=== PATIENT | female | born 1985 | race Two or more races ===

== ENCOUNTER 2022-10-23 09:29 | Inpatient (IN) | payer OTHER ==
[2022-10-23 12:44] LABS: BASO % 0.3 % (0-2.0); EOS % 0.8 % (0-4.5); HEMOGLOBIN 11.6 GM/dL (10.7-15.3); LYMPH % 15.7 % (8-40); MCH 29.7 pg (25.7-33.7); MCHC 34.1 g/dl (32.0-36.0); MEAN CELL VOLUME 87.1 fl (80-96); MEAN PLT VOLUME 8.2 fl (7.5-11.1); MONO % 10.6 % (3.8-10.2); NEUT % 72.6 % (42.8-82.8); PLATELET COUNT 179 10^3/uL (134-434); RBC 3.91 M/mm3 (3.60-5.2); RDW 14.1 % (11.6-15.6); WHITE BLOOD COUNT 7.7 K/mm3 (4.0-10.0)
[2022-10-23 12:50] LABS: INR 0.94 (0.83-1.09); PROTHROMBIN TIME (PATIENT) 10.9 SEC (9.7-13.0)
[2022-10-23 12:52] LABS: ACTIVATED PTT 24.9 SECONDS (25.2-36.5)
[2022-10-23 13:06] LABS: POTASSIUM 4.8 mmol/L (3.5-5.1)
[2022-10-23 13:09] LABS: CALCIUM 8.5 mg/dL (8.5-10.1)
[2022-10-23 13:12] LABS: CREATININE 0.5 mg/dL (0.55-1.3)
[2022-10-23] MEDS: ELECTROLYTE-148 SOLN 1,000 ML IV SCH (19:00)
[2022-10-23] MEDS ORDERED: OXYTOCIN 30 UNITS in 0.9% NS 30 UNIT/500 ML INFUS.BAG IVPB SCH (21:45)
[2022-10-23] MEDS ORDERED: AMPICILLIN SODIUM 2 GM VIAL ONE (22:00)
[2022-10-23] MEDS ORDERED: AMPICILLIN - 2 GM in SODIUM CHLORIDE 100 ML IVPB ONE (22:00)
[2022-10-23] MEDS ORDERED: OXYTOCIN 30 UNITS in 0.9% NS 30 UNIT/500 ML INFUS.BAG IVPB ONE (22:00)
[2022-10-24] MEDS: AMPICILLIN - 1 GM in SODIUM CHLORIDE 100 ML IVPB SCH ×5 (02:00→20:49)
[2022-10-24] MEDS ORDERED: AMPICILLIN SODIUM 1 GM VIAL ONE ×4 (02:00→13:53)
[2022-10-24] MEDS ORDERED: SODIUM CHLORIDE 100 ML IVPB ONE ×2 (10:05→13:53)
[2022-10-24] MEDS: ELECTROLYTE-148 SOLN 1,000 ML IV SCH (11:50)
[2022-10-24] MEDS ORDERED: CITRIC ACID/SODIUM CITRATE 30 ML UNIT-DOSE CUP PO ONE (15:04)
[2022-10-24] MEDS ORDERED: OXYTOCIN 30 UNITS in 0.9% NS 30 UNIT/500 ML INFUS.BAG IVPB ONE (15:30)
[2022-10-24] MEDS ORDERED: FENTANYL CITRATE/PF 50 MCG/ML VIAL ONE (15:33)
[2022-10-24] MEDS ORDERED: ceFAZolin SODIUM 1 GM VIAL ONE (15:33)
[2022-10-24] MEDS ORDERED: ONDANSETRON 4 MG/2 ML VIAL ONE (15:33)
[2022-10-24] MEDS ORDERED: PHENYLEPHRINE HCL 10 MG/1 ML SINGLE DOSE VIAL ONE (15:33)
[2022-10-24] MEDS ORDERED: DEXAMETHASONE SOD PHOSPHATE 4 MG/1 ML VIAL ONE (15:33)
[2022-10-24] MEDS ORDERED: METOCLOPRAMIDE HCL INJECTION 10 MG/2 ML VIAL ONE (15:33)
[2022-10-24] MEDS ORDERED: morphine SULFATE/PF 1 MG/2 ML (2cc Syringe - QUVA) ONE (15:33)
[2022-10-24] MEDS ORDERED: morphine SULFATE/PF 1 MG/2 ML (2cc Syringe - QUVA) IT ONE (16:01)
[2022-10-24] MEDS ORDERED: METHYLERGONOVINE MALEATE 0.2 MG/1 ML AMP IM ONE (16:35)
[2022-10-24] MEDS ORDERED: ONDANSETRON 4 MG/2 ML VIAL IVPUSH PRN (17:14)
[2022-10-24] MEDS ORDERED: ACETAMINOPHEN 1000 MG/100 ML BAG IVPB ONE (17:15)
[2022-10-24 17:26] LABS: CORD BASE EXCESS -3.9 mmol/L (0-2); CORD HCO3 21.3 mmHg (20-29); CORD PCO2 39.2 mmHg (30-78); CORD pH 7.352 (7.14-7.44)
[2022-10-24 17:28] LABS: CORD BASE EXCESS -3.7 mmol/L (0-2); CORD HCO3 23.4 mmHg (20-29); CORD PCO2 49.6 mmHg (30-78); CORD pH 7.291 (7.14-7.44)
[2022-10-24] MEDS ORDERED: ACETAMINOPHEN INJECTION 100 ML IVPB ONE (17:29)
[2022-10-24] MEDS ORDERED: METHYLERGONOVINE MALEATE 0.2 MG/1 ML AMP IM PRN (17:31)
[2022-10-24] MEDS ORDERED: ACETAMINOPHEN 1000 MG/100 ML BAG IVPB PRN (17:34)
[2022-10-24] MEDS: OXYTOCIN 20 UNITS in 0.9% NS 20 UNIT/1,000 ML INFUS.BAG IV SCH ×2 (17:38→20:05)
[2022-10-24 20:00] VITALS: RESP 18
[2022-10-24] MEDS ORDERED: OXYTOCIN 20 UNITS in 0.9% NS 20 UNIT/1,000 ML INFUS.BAG IV ONE (20:02)
[2022-10-25] MEDS: CEFAZOLIN SODIUM 2 GM in DEXTROSE 5%-WATER 100 ML IVPB SCH ×3 (00:38→16:00)
[2022-10-25] MEDS ORDERED: oxyCODONE HCL 5 MG TABLET PO PRN ×2 (05:32)
[2022-10-25 08:32] LABS: BASO % 0.3 % (0-2.0); EOS % 0.1 % (0-4.5); HEMATOCRIT 31.5 % (32.4-45.2); HEMOGLOBIN 10.8 GM/dL (10.7-15.3); MCH 29.7 pg (25.7-33.7); MCHC 34.2 g/dl (32.0-36.0); MEAN CELL VOLUME 86.6 fl (80-96); MONO % 6.5 % (3.8-10.2); NEUT % 84.1 % (42.8-82.8); PLATELET COUNT 166 10^3/uL (134-434); RBC 3.64 M/mm3 (3.60-5.2); RDW 13.6 % (11.6-15.6); WHITE BLOOD COUNT 13.9 K/mm3 (4.0-10.0)
[2022-10-25] MEDS: ENOXAPARIN NA (PORCINE) 40 MG/0.4 ML DISP.SYRIN SQ SCH (10:14)
[2022-10-25] MEDS ORDERED: BISACODYL 10 MG SUPP.RECT RC PRN (17:32)
[2022-10-25] MEDS: IBUPROFEN 600 MG TABLET (FP) PO PRN (21:27)
[2022-10-25] MEDS: SIMETHICONE 80 MG TAB.CHEW (FP) PO PRN (21:29)
[2022-10-26] MEDS: IBUPROFEN 600 MG TABLET (FP) PO PRN ×4 (06:26→21:39)
[2022-10-26] MEDS: ENOXAPARIN NA (PORCINE) 40 MG/0.4 ML DISP.SYRIN SQ SCH (09:01)
[2022-10-26] MEDS: SIMETHICONE 80 MG TAB.CHEW (FP) PO PRN ×3 (09:03→21:39)
[2022-10-26] MEDS: ACETAMINOPHEN 325 MG TABLET (FP) PO PRN ×3 (09:07→18:14)
[2022-10-27] MEDS: IBUPROFEN 600 MG TABLET (FP) PO PRN ×2 (03:57→10:46)
[2022-10-27 08:19] LABS: BASO % 0.3 % (0-2.0); EOS % 1.7 % (0-4.5); HEMATOCRIT 26.6 % (32.4-45.2); HEMOGLOBIN 9.2 GM/dL (10.7-15.3); LYMPH % 16.5 % (8-40); MCHC 34.6 g/dl (32.0-36.0); MEAN CELL VOLUME 86.9 fl (80-96); MEAN PLT VOLUME 8.3 fl (7.5-11.1); NEUT % 72.5 % (42.8-82.8); PLATELET COUNT 164 10^3/uL (134-434); RBC 3.06 M/mm3 (3.60-5.2); RDW 13.9 % (11.6-15.6); WHITE BLOOD COUNT 7.4 K/mm3 (4.0-10.0)
[2022-10-27 08:27] VITALS: BP 125/82; PULSE 66; TEMP 98.1
[2022-10-27] MEDS: ACETAMINOPHEN 325 MG TABLET (FP) PO PRN (08:38)
[2022-10-27] MEDS: ENOXAPARIN NA (PORCINE) 40 MG/0.4 ML DISP.SYRIN SQ SCH (09:07)
== END 2022-10-27 12:00 | disposition home or self-care (01) | DRG 788 ==
LOC: JDEL 09:29 → JLDR 10:03 → J3W 10-24 20:30
PROVIDERS: ADMIT Obstetrics & Gynecology; ATTEND Obstetrics & Gynecology
PROC: 10D00Z1 Extraction of Products of Conception, Low, Open Approach (ICD-10-PCS; principal; 2022-10-24)
DX: O62.0 Primary inadequate contractions (principal); O42.02 Full-term premature rupture of membranes, onset of labor within 24 hours of rupture; Z3A.39 39 weeks gestation of pregnancy; Z37.0 Single live birth
CPT/HCPCS: 36415; 36600; 80048; 82803; 85025; 85610; 85730; 86780; 86850; 86900; 86901; 88307-TC

== ENCOUNTER 2024-03-28 05:40 | Inpatient (IN) | payer OTHER ==
[2024-03-28] MEDS: ELECTROLYTE-148 SOLN 1,000 ML IV ONE (09:42)
[2024-03-28 09:52] LABS: HEMATOCRIT 34.6 % (32.4-45.2); HEMOGLOBIN 11.7 GM/dL (10.7-15.3); MCH 29.1 pg (25.7-33.7); MCHC 33.9 g/dl (32.0-36.0); MEAN CELL VOLUME 85.9 fl (80-96); MEAN PLT VOLUME 8.3 fl (7.5-11.1); PLATELET COUNT 186 10^3/uL (134-434); RBC 4.03 M/mm3 (3.60-5.2); WHITE BLOOD COUNT 7.6 K/mm3 (4.0-10.0)
[2024-03-28 09:58] LABS: INR 0.96 (0.83-1.09); PROTHROMBIN TIME (PATIENT) 10.6 SEC (9.7-13.0)
[2024-03-28] MEDS ORDERED: ELECTROLYTE-148 SOLN 1,000 ML IV SCH (10:00)
[2024-03-28 10:03] LABS: POTASSIUM 4.2 mmol/L (3.5-5.1)
[2024-03-28 10:04] LABS: CALCIUM 8.7 mg/dL (8.5-10.1)
[2024-03-28 10:05] LABS: BLOOD UREA NITROGEN 7.9 mg/dL (7-18)
[2024-03-28 10:08] LABS: CREATININE 0.6 mg/dL (0.55-1.3)
[2024-03-28] MEDS: ELECTROLYTE-148 SOLN 1,000 ML IV SCH (10:15)
[2024-03-28 10:51] LABS: SYPHILIS W/ RPR CONF NON-REACTIVE (NONREACTIVE)
[2024-03-28 11:18] LABS: ANISOCYTOSIS 0; HELMET CELLS 0; HIV INTERPRETATION NEGATIVE (NEGATIVE); HOWELL-JOLLY BODIES 0; MACROCYTOSIS 0; OVALOCYTE 0; ROULEAU 0; SICKELED CELLS 0; TARGET CELLS 0; TEAR DROP CELLS 0; TOXIC GRANULATION 0
[2024-03-28 11:28] VITALS: BMI 31.5
[2024-03-28] MEDS: CITRIC ACID/SODIUM CITRATE 30 ML UNIT-DOSE CUP PO ONE (11:40)
[2024-03-28 13:57] LABS: CORD BASE EXCESS -2.1 mmol/L (0-2); CORD BASE EXCESS -5.4 mmol/L (0-2); CORD HCO3 22.4 mmHg (20-29); CORD HCO3 23.1 mmHg (20-29); CORD PCO2 41.3 mmHg (30-78); CORD PCO2 52.7 mmHg (30-78); CORD pH 7.247 (7.14-7.44); CORD pH 7.366 (7.14-7.44)
[2024-03-28] MEDS: OXYTOCIN 20 UNITS in 0.9% NS 20 UNIT/1,000 ML INFUS.BAG IV SCH (14:12)
[2024-03-28] MEDS ORDERED: METHYLERGONOVINE MALEATE 0.2 MG/1 ML AMP IM PRN (14:17)
[2024-03-28] MEDS ORDERED: IBUPROFEN 800 MG/8 ML IJ IVPB PRN (14:19)
[2024-03-28] MEDS ORDERED: OXYTOCIN 20 UNITS in 0.9% NS 20 UNIT/1,000 ML INFUS.BAG IV ONE (14:44)
[2024-03-28] MEDS ORDERED: ACETAMINOPHEN INJECTION 100 ML ONE (15:25)
[2024-03-28] MEDS: ACETAMINOPHEN 1000 MG/100 ML BAG IVPB PRN (15:28)
[2024-03-28 16:23] LABS: INR 0.98 (0.83-1.09); PROTHROMBIN TIME (PATIENT) 10.7 SEC (9.7-13.0)
[2024-03-28 16:26] LABS: ACTIVATED PTT 25.7 SECONDS (25.2-36.5)
[2024-03-28] MEDS ORDERED: CEFAZOLIN 2 GM/D5W 2 GM/50 ML ML IVPB SCH (18:00)
[2024-03-28] MEDS: CEFAZOLIN SODIUM 2 GM in DEXTROSE 5%-WATER - 50 ML IVPB SCH (18:04)
[2024-03-29] MEDS ORDERED: oxyCODONE HCL 5 MG TABLET PO PRN (02:17)
[2024-03-29] MEDS: SIMETHICONE 80 MG TAB.CHEW (FP) PO PRN (02:28)
[2024-03-29] MEDS ORDERED: CEFAZOLIN SODIUM 2 GM VIAL ONE (02:36)
[2024-03-29 07:20] LABS: BASO % 0.2 % (0-2.0); EOS % 0.2 % (0-4.5); HEMATOCRIT 28.4 % (32.4-45.2); HEMOGLOBIN 9.4 GM/dL (10.7-15.3); LYMPH % 10.3 % (8-40); MCH 28.5 pg (25.7-33.7); MCHC 33.1 g/dl (32.0-36.0); MEAN CELL VOLUME 86.1 fl (80-96); MEAN PLT VOLUME 8.7 fl (7.5-11.1); MONO % 5.3 % (3.8-10.2); PLATELET COUNT 162 10^3/uL (134-434); RDW 14.1 % (11.6-15.6); WHITE BLOOD COUNT 13.2 K/mm3 (4.0-10.0)
[2024-03-29] MEDS: CEFAZOLIN 2 GM/D5W 2 GM/50 ML ML IVPB SCH (10:50)
[2024-03-29] MEDS: ENOXAPARIN NA (PORCINE) 40 MG/0.4 ML DISP.SYRIN SQ SCH (10:50)
[2024-03-29] MEDS: IBUPROFEN 600 MG TABLET (FP) PO PRN (11:02)
[2024-03-29 12:29] VITALS: RESP 18
[2024-03-29] MEDS: ACETAMINOPHEN 325 MG TABLET (FP) PO PRN (20:12)
[2024-03-30 07:37] LABS: HEMATOCRIT 28.7 % (32.4-45.2); HEMOGLOBIN 9.5 GM/dL (10.7-15.3); MCH 28.5 pg (25.7-33.7); MCHC 33.2 g/dl (32.0-36.0); MEAN CELL VOLUME 85.9 fl (80-96); MEAN PLT VOLUME 8.3 fl (7.5-11.1); PLATELET COUNT 183 10^3/uL (134-434); RBC 3.33 M/mm3 (3.60-5.2); RDW 13.9 % (11.6-15.6)
[2024-03-30] MEDS: BISACODYL 10 MG SUPP.RECT RC PRN (10:17)
[2024-03-30 23:53] VITALS: BP 121/83; PULSE 76; TEMP 97.9
[2024-03-31 07:05] LABS: BASO % 0.4 % (0-2.0); EOS % 1.7 % (0-4.5); HEMATOCRIT 28.4 % (32.4-45.2); HEMOGLOBIN 9.6 GM/dL (10.7-15.3); LYMPH % 16.7 % (8-40); MCHC 33.6 g/dl (32.0-36.0); MEAN CELL VOLUME 86.2 fl (80-96); MEAN PLT VOLUME 8.1 fl (7.5-11.1); MONO % 7.1 % (3.8-10.2); NEUT % 74.1 % (42.8-82.8); PLATELET COUNT 188 10^3/uL (134-434); RDW 13.9 % (11.6-15.6); WHITE BLOOD COUNT 8.8 K/mm3 (4.0-10.0)
== END 2024-03-31 12:10 | disposition home or self-care (01) | DRG 788 ==
LOC: JDEL 05:40 → JLDR 10:45 → J3W 16:39
PROVIDERS: ADMIT Obstetrics & Gynecology; ATTEND Obstetrics & Gynecology
PROC: 10D00Z1 Extraction of Products of Conception, Low, Open Approach (ICD-10-PCS; principal; 2024-03-28)
DX: O34.211 Maternal care for low transverse scar from previous cesarean delivery (principal); N85.8 Other specified noninflammatory disorders of uterus; O36.8130 Decreased fetal movements, third trimester, not applicable or unspecified; O99.214 Obesity complicating childbirth; Z3A.39 39 weeks gestation of pregnancy; Z37.0 Single live birth
CPT/HCPCS: 36415; 36600; 76819-TC; 80048; 82803; 85025; 85027; 85384; 85610; 85730; 86780; 86850; 86900; 86901; 87389; 88307-TC; 94010; J0131

== ENCOUNTER 2024-04-02 11:43 | Emergency (ER) | payer OTHER ==
[2024-04-02 11:54] VITALS: RESP 18; BMI 25.4
[2024-04-02] MEDS ORDERED: ACETAMINOPHEN INJECTION 100 ML ONE (12:43)
[2024-04-02] MEDS: ACETAMINOPHEN 1000 MG/100 ML BAG IVPB ONE (12:55)
[2024-04-02 14:05] LABS: BASO % 0.3 % (0-2.0); EOS % 1.1 % (0-4.5); HEMATOCRIT 30.6 % (32.4-45.2); HEMOGLOBIN 10.3 GM/dL (10.7-15.3); MCH 28.8 pg (25.7-33.7); MCHC 33.6 g/dl (32.0-36.0); MEAN CELL VOLUME 85.8 fl (80-96); MEAN PLT VOLUME 7.6 fl (7.5-11.1); MONO % 6.6 % (3.8-10.2); PLATELET COUNT 296 10^3/uL (134-434); RBC 3.56 M/mm3 (3.60-5.2); WHITE BLOOD COUNT 8.1 K/mm3 (4.0-10.0)
[2024-04-02 14:07] LABS: EPI CELLS 10 /uL (0-25.1); HYALINE CASTS 0 /uL (0-3.1); PH,URINE 6.5 (5.0-8.0); URINE APPEARANCE CLEAR; URINE BACTERIA 29 /uL (0-1359); URINE BILIRUBIN NEGATIVE (NEGATIVE); URINE COLOR YELLOW; URINE GLUCOSE (UA) NEGATIVE (NEGATIVE); URINE KETONE NEGATIVE (NEGATIVE); URINE LEUK ESTERASE TRACE (NEGATIVE); URINE NITRITE NEGATIVE (NEGATIVE); URINE PROTEIN NEGATIVE (NEGATIVE); URINE RBC 22 /uL (0-23.9); URINE UROBILINOGEN 0.2 mg/dL (0.2-1.0); URINE WBC 12 /uL (0-25.8)
[2024-04-02 14:10] LABS: INR 0.97 (0.83-1.09); PROTHROMBIN TIME (PATIENT) 10.6 SEC (9.7-13.0)
[2024-04-02 14:13] LABS: ACTIVATED PTT 27.8 SECONDS (25.2-36.5)
[2024-04-02 14:19] LABS: POTASSIUM 4.2 mmol/L (3.5-5.1)
[2024-04-02 14:21] LABS: CALCIUM 8.8 mg/dL (8.5-10.1)
[2024-04-02 14:22] LABS: ALBUMIN 2.9 g/dl (3.4-5.0); BLOOD UREA NITROGEN 9.2 mg/dL (7-18); MAGNESIUM 2.2 mg/dL (1.8-2.4)
[2024-04-02 14:25] LABS: CREATININE 0.5 mg/dL (0.55-1.3)
[2024-04-02 14:26] LABS: BILIRUBIN,TOTAL 0.5 mg/dL (0.2-1)
[2024-04-02 14:27] LABS: TOT PROT 6.6 g/dl (6.4-8.2)
[2024-04-02] MEDS: LACTATED RINGERS SOLUTION 1000 ML INFUS.BAG IV ONE (15:20)
[2024-04-02 16:58] VITALS: BP 135/88; PULSE 52; TEMP 98.2
[2024-04-02] MEDS ORDERED: IBUPROFEN 400 MG TABLET (FP) PO ONE (18:15)
[2024-04-02] MEDS: IBUPROFEN 400 MG TABLET (FP) PO ONE (18:18)
== END 2024-04-02 18:56 | disposition home or self-care (01) ==
LOC: JER 11:43
PROC: 3E033NZ Introduction of Analgesics, Hypnotics, Sedatives into Peripheral Vein, Percutaneous Approach (ICD-10-PCS; principal; 2024-04-02)
DX: O90.89 Other complications of the puerperium, not elsewhere classified (principal); R10.31 Right lower quadrant pain; N89.8 Other specified noninflammatory disorders of vagina; Z20.822 Contact with and (suspected) exposure to COVID-19
CPT/HCPCS: 0241U-QW; 36415; 74177-TC; 76830-TC; 80053; 81003; 83690; 83735; 84703; 85025; 85610; 85730; 86850; 86900; 86901; 87086; 99285-25; J0131; Q9967